=== PATIENT | male | born 1955 | race Caucasian/White ===

== ENCOUNTER 2016-05-09 06:32 | Day surgery (SDC) | payer OTHER ==
[~2016-05-09] VITALS: Ht 180.3 cm; Wt 73.5 kg
--- NOTE | ~2016-05-09 | HP ---
PATIENT: MAUREEN KENDRICK MEDICAL RECORD: [id number] ACCOUNT: [id number] LOCATION:[facility] : 53 ADMISSION DATE: 05/09/16 HISTORY AND PHYSICAL EXAMINATION CHIEF COMPLAINT: Left inguinal hernia. HISTORY OF PRESENT ILLNESS: The patient was in work release program. 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 He states that this was on the job injury. He has undergone a previous right inguinal hernia repair in [place]. He now has a left inguinal hernia, which is symptomatic. It reduces spontaneously. He is tender in the internal canal. The risks, possible complications and alternatives to left inguinal herniorrhaphy with mesh were explained to the patient. He elects to proceed. I specifically discussed with him that I would be using mesh. We discussed the pathophysiology of hemorrhoids as well as the methods by which they can be repaired. I specifically discussed with him the risk of bleeding requiring emergency reoperation, infection, intestinal injury, recurrence, chronic pain, injury to the vas deferens, injury to the testicular artery or vein. Straining and lifting aggravates. Reduction alleviates. Mild symptoms. He has been wearing a truss. ALLERGIES: No known drug allergies. HOME MEDICATIONS: Ibuprofen. PAST MEDICAL AND SURGICAL HISTORY: Hepatitis C, right inguinal hernia repair. SOCIAL HISTORY: Former smoker, quit 5 years ago. REVIEW OF SYSTEMS: Negative for coronary artery disease or CVA. Negative for diabetes or thyroid problems. PHYSICAL EXAMINATION: GENERAL: The patient does not appear acutely ill. He does not appear chronically ill. VITAL SIGNS: Reviewed. HEAD: External ears appear normal. EYES: Extraocular movements are intact. NECK: Trachea is midline. CHEST: No intercostal retractions. PULMONARY: Nonlabored, no stridor. ABDOMEN: Nontender. GENITOURINARY: Distended testicles. No right inguinal hernia. There is reducible left inguinal hernia. EXTREMITIES: No peripheral cyanosis. INTEGUMENT: No rash. IMPRESSION: Symptomatic left inguinal hernia. PLAN: Left inguinal hernia repair with mesh. HISTORY AND PHYSICAL [id number] MAUREEN KENDRICK TRANSINT:[id number] Voice Confirmation ID: [id number] DOCUMENT ID: [id number] JAY HUFF MD CC: NORMAN DURANT DO, JAY RITTER MD, MELE JOSE MD, [id number] and MIRNA ALVAREZ DICTATION DATE: 05/09/1622 TIMBER SUPERVISOR: 05/09/16 1026 [facility] [address] [id number]
--- NOTE | ~2016-05-09 | OP ---
PATIENT NAME: MAUREEN KENDRICK MEDICAL RECORD: [id number] :53 LOCATION:D[facility] ADMISSION DATE: SURGEON: JAY HUFF MD DATE OF OPERATION: 05/09/2016 PREOPERATIVE DIAGNOSIS: Symptomatic left inguinal hernia. POSTOPERATIVE DIAGNOSES: 1. Symptomatic left indirect inguinal hernia. 2. Left cord lipoma. PROCEDURES: 1. Open left inguinal hernia repair with bilayer preperitoneal polypropylene mesh. 2. Excision of left cord lipoma. SURGEON: Jay Huff MD MAIL SUPERINTENDENT: None. BLOOD LOSS: Minimal. ANESTHESIA: General. COMPLICATIONS: None. The risks, possible complications, and alternatives to the procedure were explained to the patient. He elects to proceed. OPERATIVE COURSE: The patient was conveyed to the operating room electively on 05/09/2016. General anesthesia was induced by anesthesia staff. The abdomen and genitals were sterilely prepped and draped. A transverse incision was accomplished in the left groin. Sharp dissection was carried down through the skin and subcutaneous tissues as well as Divine fascia. The external oblique aponeurosis was incised along the direction of its fibers. I bluntly dissected down through the internal oblique and transverse abdominis muscles. A preperitoneal pocket was fashioned bluntly. There was no direct component. No femoral component. There was an indirect hernia. I was able to separate the indirect hernia from the surrounding cord structures. There was a cord lipoma. I clamped the vascular pedicle to the cord lipoma. I then cauterized the vascular pedicle and excised the cord lipoma. I entered the left hernia sac. There was no sliding component. I ligated the sac highly with a circumferential 3-0 Vicryl suture. I then divided the sac distal to this. I then cut 2 ovals out of polypropylene mesh. The 2 ovals were sutured, one on top of the other with a #1 Surgidac. I then placed the mesh in the preperitoneal space. Once I was satisfied with placement of the mesh, I allowed the internal oblique and transversus abdominis muscles to come together over the mesh. These were sutured together incorporating the underlying mesh with interrupted horizontal mattress 0-Surgidac. The external oblique aponeurosis was closed with running #1 Vicryls. Divine fascia was approximated with interrupted 3-0 Vicryls. The subdermis was approximated with interrupted 3-0 Vicryls. The skin was approximated with a running intracuticular 3-0 Vicryl. OPERATIVE REPORT [id number] MAUREEN KENDRICK Benzoin and Steri-Strips were applied. The patient was then extubated and conveyed to the post-anesthesia care unit where he was in stable condition. He is going to be dismissed back to the senior living. He had a script for [place] for pain. He should not do any heavy lifting or straining for 3 weeks. That is no lifting of anything heavier than 8 pounds, then he can slowly increase his level of activity. This is going to be normal for him to have a pseudo-sac, hematoma or seroma. These should not be drained. It should be reabsorb by his body in the next 3-6 months. TRANSINT:[id number] Voice Confirmation ID: [id number] DOCUMENT ID: [id number] JAY HUFF MD CC: NORMAN DURANT DO, STIEVE, JEFFREY MD and MIRNA ALVAREZ [id number] DICTATION DATE: 05/09/16 1106 [facility] HE[facility] TAP: 05/09/[address] [facility] [address] [place] [address]
[2016-05-09 07:18] LABS: HEMATOCRIT 40.8 % (42.0-54.0); HEMOGLOBIN 13.9 g/dL (13.5-17.5); MCHC 34.1 g/dL (31.0-37.0); MEAN PLATELET VOLUME 11.4 fL (7.4-10.4); RBC 4.34 10x6/uL (4.20-6.10); RDW 13.1 % (11.5-14.5); WBC 3.3 10x3/uL (4.8-10.8)
[2016-05-09 07:25] VITALS: BP 135/74; Ht 180.3 cm; Wt 73.5 kg
[2016-05-09 07:31] LABS: APTT 30.5 SECONDS (22.8-39.4); INR 1.08 (0.85-1.17); PROTIME 13.8 SECONDS (11.6-15.0)
[2016-05-09 07:39] LABS: ALBUMIN 3.1 g/dL (3.4-5.0); ALKALINE PHOSPHATASE 83 U/L (46-116); ALT (SGPT) 88 U/L (10-68); BILIRUBIN - TOTAL 0.87 mg/dL (0.2-1.3); CALC OSMOLALITY 278 mosm/kg (275-300); CALCIUM 8.3 mg/dL (8.5-10.1); CARBON DIOXIDE 26.3 mmol/L (21.0-32.0); CHLORIDE - SERUM 107 mmol/L (98-107); CREATININE - SERUM 0.7 mg/dL (0.6-1.3); GLUCOSE 90 mg/dL (74-106); POTASSIUM - SERUM 3.8 mmol/L (3.5-5.1); SODIUM 140 mmol/L (136-145); UREA NITROGEN 13 mg/dL (7-18); eGFR NON AFRICAN AMERICAN > 90 mL/min (90-120)
--- NOTE | 2016-05-09 15:23 | NUR ---
1400--PT VOIDS, IV DC'D. RENU RN 1410--DISCHARGE INSTRUCTIONS GIVEN, PT VERBALIZES UNDERSTANDING. PT OFF UNIT VIA WC. RENU EDOUARD
== END 2016-05-09 14:10 | disposition home or self-care (01) ==
LOC: D.OPS 06:32
PROVIDERS: Anesthesiology
DX: K40.90 Unilateral inguinal hernia, without obstruction or gangrene, not specified as recurrent (principal); D17.6 Benign lipomatous neoplasm of spermatic cord; B19.20 Unspecified viral hepatitis C without hepatic coma; Z87.891 Personal history of nicotine dependence; Z79.1 Long term (current) use of non-steroidal anti-inflammatories (NSAID)